=== PATIENT | female | born 1955 | race Caucasian/White ===

== ENCOUNTER 2025-02-24 17:51 | Emergency (ER) | payer OTHER ==
[~2025-02-24] VITALS: Ht 162.6 cm; Wt 49.9 kg
[2025-02-24] MEDS ORDERED: WELLBUTRIN SR200 MG PO (18:15)
[2025-02-24] MEDS ORDERED: ROSUVASTATIN CA10 MG PO (18:15)
[2025-02-24] MEDS ORDERED: KETOROLAC TROMETHAMINE 60 MG VIAL IM ONE (21:15)
[2025-02-24] MEDS ORDERED: IBUPROFEN600 MG PO (23:38)
== END 2025-02-24 23:50 | disposition home or self-care (01) ==
LOC: ER 17:52
DX: S09.8XXA Other specified injuries of head, initial encounter (principal); W19.XXXA Unspecified fall, initial encounter; Y93.89 Activity, other specified; Y92.831 Amusement park as the place of occurrence of the external cause; Y99.8 Other external cause status
CPT/HCPCS: 70450; 73564; 96372; 99284; J1885